=== PATIENT | female | born 1955 | race Caucasian/White ===

== ENCOUNTER → 2025-04-20 | Day surgery (SDC) | payer MEDICARE ==
[2025-04-15 10:15] LABS: BASOPHILS % 0.4 % (0.0-1.0); EOSINOPHILS % 4.3 % (0.0-6.0); LYMPHOCYTES % 34.8 % (18.0-39.1); MONOCYTES % 6.7 % (4.4-11.3); NEUTROPHILS % 53.6 % (38.7-80.0); RED CELL DISTRIBUTION WIDTH 12.5 % (11.7-14.4)
[~2025-04-20] MED LIST: AZO D-MANNOSE500 MG; BONIVA150 MG PO; CALCIUM + VITA1 EACH PO; CITALOPRAM HBR20 MG PO; ESTRACE42.5 GM TOP; FENTANYL CITRATE/PF 100MCG/2 ML INJ ONE; MACROBID 100 M100 MG PO; MELOXICAM7.5 MG PO; PREMARIN CREAM; PROPOFOL IV EMULSION 10 MG/ML 20 ML VIAL ONE; ROSUVASTATIN CA10 MG PO; SERTRALINE HCL50 MG PO
[2025-04-20 07:57] VITALS: TEMP 98.4
[2025-04-20 08:27] VITALS: BP 106/72; PULSE 57; RESP 16; O2SAT 97
[2025-04-20] MEDS: LACTATED RINGER'S 1,000 ML ONE (08:33)
== END | disposition home or self-care (01) ==
LOC: OR 05:24
PROVIDERS: ATTEND Internal Medicine Gastroenterology
DX: Z09 Encounter for follow-up examination after completed treatment for conditions other than malignant neoplasm (principal); Z86.0100 Personal history of colon polyps, unspecified; K57.30 Diverticulosis of large intestine without perforation or abscess without bleeding; K64.8 Other hemorrhoids; E78.5 Hyperlipidemia, unspecified; I25.2 Old myocardial infarction; M19.91 Primary osteoarthritis, unspecified site; F41.9 Anxiety disorder, unspecified; Z86.19 Personal history of other infectious and parasitic diseases; Z79.899 Other long term (current) drug therapy; Z01.810 Encounter for preprocedural cardiovascular examination; Z01.812 Encounter for preprocedural laboratory examination
CPT/HCPCS: 36415; 45378; 85025; 93005; J2704; J3010; J7121